=== PATIENT | female | born 1980 | race Caucasian/White ===

== ENCOUNTER 2016-12-17 10:17 | Emergency (ER) | payer OTHER ==
[2016-12-17 10:21] VITALS: BP 128/82; PULSE 87; TEMP 97; O2SAT 99
[2016-12-17 10:22] VITALS: BMI 54.9
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
[2016-12-17] MEDS: TDAP Vaccine 0.5 mL Syr IM ONE (11:39)
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
[2016-12-17] MEDS ORDERED: Miconazole 2% Vaginal 7 CREAM VAG SCH (22:00)
== END 2016-12-17 12:52 | disposition home or self-care (01) ==
LOC: MERGE 10:17 → H.ER 10:17
DX: S09.90XA Unspecified injury of head, initial encounter (principal); T14.8 Other injury of unspecified body region; Y04.0XXA Assault by unarmed brawl or fight, initial encounter; Y04.1XXA Assault by human bite, initial encounter; Y92.89 Other specified places as the place of occurrence of the external cause; Z79.01 Long term (current) use of anticoagulants; Z86.711 Personal history of pulmonary embolism

== ENCOUNTER 2017-02-11 19:12 | Emergency (ER) | payer OTHER ==
[2017-02-11 19:12] VITALS: BMI 54.9
[2017-02-11] MEDS ORDERED: DiphenhydrAMINE 50 mg/ml Inj IVP STA (20:07)
[2017-02-11] MEDS ORDERED: Sodium Chloride 0.9% 1,000 ML IV STA (20:16)
[2017-02-11 20:36] LABS: BASO % 0.5 % (0.0-2.0); EOS # 0.1 K/uL (0.0-0.7); EOS % 1.5 % (0.0-4.0); HEMATOCRIT 38.4 % (34.0-47.0); LYMPH # 3.3 K/uL (1.0-4.3); LYMPH % 35.1 % (20.0-40.0); MEAN CELL VOLUME 71.2 fl (81.0-99.0); MEAN CORPUSCULAR HEMOGLOBIN 23.7 pg (27.0-31.0); MEAN CORPUSCULAR HGB CONC 33.3 g/dL (33.0-37.0); MEAN PLATELET VOLUME 8.7 fl (7.2-11.7); MONO # 0.8 K/uL (0.0-0.8); MONO % 8.4 % (0.0-10.0); NEUT # 5.1 K/uL (1.8-7.0); NEUT % 54.5 % (50.0-75.0); NRBC % 0.1 % (0.0-0.0); RED CELL DISTRIBUTION WIDTH 16.5 % (11.5-14.5); WHITE BLOOD COUNT 9.3 K/uL (4.8-10.8)
--- NOTE | 2017-02-11 20:36 | ED PDOC ---
HPI: Chest Pain Time Seen by Provider: 02/11/17 19:49 Chief Complaint (Nursing): Chest Pain Chief Complaint (Provider): Chest pain History Per: Patient History/Exam Limitations: no limitations Onset/Duration Of Symptoms: Days Current Symptoms Are (Timing): Still Present Additional History Per: Patient Additional Complaint(s): The patient is a 36yo female with past medical history of multiple DVT's and PE' s, IVC filter, currently on coumadin, presents to the ED for evaluation of chest pain and shortness of breath, present for the past two weeks and worsening since onset. She reports the pain is left sided and radiating to her left shoulder. She reports the shortness of breath is constant but worse upon exertion. She reports bilateral lower extremity swelling which is chronic and states no changes today. Of note, patient does report she missed couple doses of her medication the past few weeks. Denies any cough or fevers. She offers no additional medical complaints. PCP: [facility] Past Medical History Reviewed: Historical Data, Nursing Documentation, Vital Signs Vital Signs: Last Vital Signs Temp 97.7 F 02/11/17 23:56 Pulse 63 02/11/17 23:56 Resp 20 02/11/17 23:56 BP 107/58 L 02/11/17 23:56 Pulse Ox 98 02/11/17 23:56 - Medical History PMH: Anemia, Anxiety, Asthma, Depression, Deep Vein Thrombosis (russ leg), HTN ( per old chart but pt denies), Migraine, Peripheral Edema (russ lung), Pneumonia, Pulmonary Embolism Denies: Chronic Kidney Disease Other PMH: Coag protein C and protein S deficiency - Surgical History Surgical History: Appendectomy, Endoscopy - Family History Family History: States: Diabetes, Hypertension - Social History Current smoker - smoking cessation education provided: No Alcohol: None Drugs: Denies - Immunization History Hx Tetanus Toxoid Vaccination: No Hx Influenza Vaccination: No Hx Pneumococcal Vaccination: No - Home Medications Home Medications: Ambulatory Orders Medication Instructions Recorded Warfarin [Coumadin] 8 mg PO DAILY 05/23/15 Fluconazole [Diflucan] 150 mg PO ONCE #1 tab 09/03/16 Hydrocortisone 1% Cream [Cortizone 1 appl TP BID #1 tube 09/03/16 1% Cream] Spironolactone [Aldactone] 100 mg PO BID 09/03/16 Amoxicillin/Potassium Clav 1 tab PO TID #30 tab 12/17/16 [Augmentin 500 mg-125 mg] Miconazole Nitrate [Monistat 3] 1 each VG DAILY #1 kit 12/17/16 Naproxen [Naprosyn] 500 mg PO Q12H #20 tab 12/17/16 - Allergies Allergies/Adverse Reactions: Allergies Allergy/AdvReac Type Severity Reaction Status Date / Time avocado Allergy Severe RASH Verified 04/15/16 13:03 banana Allergy Severe ANAPHYLAXIS Verified 04/15/16 13:03 Iodinated Contrast- Oral and Allergy Severe RASH Verified 04/15/16 13:03 IV Dye [Iodinated Contrast Media - IV Dye] kiwi Allergy Severe RASH Verified 04/15/16 13:03 peanut Allergy Severe RASH Verified 04/15/16 13:03 shrimp Allergy Severe RASH Verified 04/15/16 13:03 wheat Allergy Severe RASH Verified 04/15/16 13:03 Iodine and Iodide Containing Allergy RASH Verified 12/17/16 10:44 Produc Review of Systems ROS Statement: Except As Marked, All Systems Reviewed And Found Negative (as per HPI) Constitutional: Negative for: Fever Cardiovascular: Positive for: Chest Pain Respiratory: Positive for: Shortness of Breath, SOB with Exertion. Negative for : Cough - Laboratory Results Result Diagrams: 02/11/17 20:20 02/11/17 20:29 - ECG O2 Sat by Pulse Oximetry: 100 (RA) Pulse Ox Interpretation: Normal Medical Decision Making Medical Decision Making: Impression: Chest pain, shortness of breath Differential: PE, ACS, CHF, bronchospasm, Pneumonia Plan: -- labs -- CXR -- CT Angio -- Benadryl 50mg IVP -- Solumedrol 125mg IVP -- IV Fluids EXAM: CT Angiography Chest With Intravenous Contrast CLINICAL HISTORY: 36 years old, female; Pain and signs and symptoms; Shortness of breath; Chest pain; Left-sided chest pain; Patient HX: HX of p. E. ; Additional info: SOB h/o pe TECHNIQUE: Axial computed tomographic angiography images of the chest with intravenous contrast using pulmonary embolism protocol. All CT scans at this facility use one or more dose reduction techniques, viz.: automated exposure control; ma/kV adjustment per patient size (including targeted exams where dose is matched to indication; i.e. head); or iterative reconstruction technique. MIP reconstructed images were created and reviewed. Coronal and sagittal reformatted images were created and reviewed. CONTRAST: 95 mL of [id number] administered intravenously. COMPARISON: No relevant prior studies available. FINDINGS: Pulmonary arteries: Unremarkable. No pulmonary embolism. Aorta: No acute findings. No thoracic aortic aneurysm. Lungs: Unremarkable. No mass. No consolidation. Pleural space: Unremarkable. No significant effusion. No pneumothorax. Heart: Unremarkable. No cardiomegaly. No significant pericardial effusion. No evidence of RV dysfunction. Bones/joints: No acute fracture. No dislocation. Soft tissues: Unremarkable. Lymph nodes: Unremarkable. No enlarged lymph nodes. IMPRESSION: Unremarkable chest CTA. No pulmonary embolism. Thank you for allowing us to participate in the care of your patient. Dictated and Authenticated by: Maliha Braun MD Labs and imaging reviewed and discussed with patient. She is stable for discharge. All questions answered, follow up instructions given. She is comfortable going home and following up in the outpatient setting. Scribe Attestation: Documented by Natasha Suarez, acting as a scribe for Griselda Fields MD. Provider Scribe Attestation: All medical record entries made by the Scribe were at my direction and personally dictated by me. I have reviewed the chart and agree that the record accurately reflects my personal performance of the history, physical exam, medical decision making, and the department course for this patient. I have also personally directed, reviewed, and agree with the discharge instructions and disposition. Disposition - Clinical Impression Clinical Impression: Atypical chest pain - Patient ED Disposition Is Patient to be Admitted: No Doctor Will See Patient In The: Office Counseled Patient/Family Regarding: Studies Performed, Diagnosis, Need For Followup - Disposition Referrals: [facility] [Outside] Disposition: Routine/Home Disposition Time: 23:30 Condition: GOOD Additional Instructions: RETURN TO ER FOR WORSENING SYMPTOMS TAKE YOUR COUMADIN PRESCRIBED AND FOLLOW UP SCHEDULED WITH CLINIC Instructions: Chest Pain (ED), Stress (ED)
[2017-02-11 20:40] LABS: PARTIAL THROMBOPLASTIN TIME 32.2 Seconds (25.6-37.1)
[2017-02-11 20:50] LABS: ALB/GLOB RATIO 1.3 (1.0-2.1); ALKALINE PHOSPHATASE 65 U/L (38-126); ALT/SGPT 31 U/L (9-52); AST/SGOT 24 U/L (14-36); BILIRUBIN,TOTAL 0.6 mg/dl (0.2-1.3); BLOOD UREA NITROGEN 10 mg/dl (7-17); CALCIUM 9.1 mg/dL (8.4-10.2); CARBON DIOXIDE 25 mmol/L (22-30); CHLORIDE 106 mmol/L (98-107); GFR AFRICAN-AMERICAN > 60; GLUCOSE,RANDOM 83 mg/dL (65-105); POTASSIUM 3.6 MMOL/L (3.6-5.0); SODIUM 144 mmol/l (132-148); TOTAL PROTEIN 7.4 G/DL (6.3-8.2)
[2017-02-11 21:26] LABS: THYROID STIMULATING HORMONE 1.91 mIU/ML (0.46-4.68)
[2017-02-11] MEDS ORDERED: DiphenhydrAMINE 50 mg/ml Inj ONE (21:35)
[2017-02-11] MEDS ORDERED: Iodixanol 320 MG/ML 100 ML BOTTLE IV ONE (22:41)
[2017-02-11] MEDS ORDERED: Sodium Chloride 0.9% 50 ML IV ONE (22:41)
[2017-02-11 23:57] VITALS: BP 107/58; PULSE 63; RESP 20; TEMP 97.7
[2017-02-11 23:58] VITALS: O2SAT 100
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
--- NOTE | 2017-02-12 09:54 | RAD ---
HISTORY: sob COMPARISON: No prior. TECHNIQUE: Chest PA and lateral FINDINGS: LUNGS: No acute infiltrate bilaterally however history volume appears somewhat diminished. PLEURA: No significant pleural effusion identified. No pneumothorax apparent. CARDIOVASCULAR: Cardiac silhouette appears upper limits of normal. OSSEOUS STRUCTURES: No significant abnormalities. VISUALIZED UPPER ABDOMEN: Normal. OTHER FINDINGS: None. IMPRESSION: Diminished inspiratory volume. Upper limits normal cardiac size. No acute infiltrate pleural effusion or pneumothorax identified bilaterally.
--- NOTE | 2017-02-13 11:12 | CARD ---
APPROVED REPORT EKG Measurement Heart [id number] <Conclusion> Normal sinus rhythm Possible Left atrial enlargement Borderline ECG
== END 2017-02-12 00:04 | disposition home or self-care (01) ==
LOC: H.ER 19:12
DX: R07.9 Chest pain, unspecified (principal); Z86.59 Personal history of other mental and behavioral disorders; I10 Essential (primary) hypertension; J45.909 Unspecified asthma, uncomplicated; Z86.711 Personal history of pulmonary embolism; Z86.718 Personal history of other venous thrombosis and embolism; Z79.01 Long term (current) use of anticoagulants
CPT/HCPCS: 71020; 71275; 80053; 80324; 80345; 80346; 80349; 80353; 80358; 80361; 81025; 83880; 83992; 84443; 84484; 85025; 85610; 85730; 86850; 86900; 93005; 96361; 96374; 96375; 99284; J1200; J2930; J7040; Q9967

== ENCOUNTER 2017-03-28 15:01 | Emergency (ER) | payer OTHER ==
[2017-03-28 15:02] VITALS: BMI 50.1
[2017-03-28 15:10] VITALS: BP 115/73; PULSE 87; RESP 18; TEMP 98.3; O2SAT 99
[2017-03-28] MEDS ORDERED: Sodium Chloride 0.9% 1,000 ML IV STA (15:37)
--- NOTE | 2017-03-28 15:38 | ED PDOC ---
HPI: Abdomen Time Seen by Provider: 03/28/17 15:18 Chief Complaint (Nursing): Abdominal Pain Chief Complaint (Provider): Abd pain History Per: Patient History/Exam Limitations: no limitations Onset/Duration Of Symptoms: Days (yesterday) Outside of [place] travel?: No Additional Complaint(s): Abd pain across lower and r flank. Nausea, no vomit. Headache mild frontal, not worst in her life. No neck pain, weakness, dizziness, vision changes. Gradual onset of pain. No chest pain, dyspnea, leg pain. No fever, cough. On coumadin for pe dx 4 yrs ago. No numbness, tingles. Past Medical History Reviewed: Nursing Documentation, Vital Signs Vital Signs: Last Vital Signs Temp 98.3 F 03/28/17 15:08 Pulse 87 03/28/17 15:08 Resp 18 03/28/17 15:08 BP 115/73 03/28/17 15:08 Pulse Ox 99 03/28/17 15:41 - Medical History PMH: Anemia, Anxiety, Asthma, Depression, Deep Vein Thrombosis (russ leg), Migraine, Peripheral Edema (russ lung), Pneumonia, Pulmonary Embolism Denies: Chronic Kidney Disease - Surgical History Surgical History: Appendectomy, Endoscopy - Family History Family History: States: Unknown Family Hx, Diabetes, Hypertension - Social History Current smoker - smoking cessation education provided: No Alcohol: None Drugs: Denies - Immunization History Hx Tetanus Toxoid Vaccination: No Hx Influenza Vaccination: No Hx Pneumococcal Vaccination: No - Home Medications Home Medications: Ambulatory Orders Medication Instructions Recorded Warfarin [Coumadin] 8 mg PO DAILY 05/23/15 Fluconazole [Diflucan] 150 mg PO ONCE #1 tab 09/03/16 Hydrocortisone 1% Cream [Cortizone 1 appl TP BID #1 tube 09/03/16 1% Cream] Spironolactone [Aldactone] 100 mg PO BID 09/03/16 Amoxicillin/Potassium Clav 1 tab PO TID #30 tab 12/17/16 [Augmentin 500 mg-125 mg] Miconazole Nitrate [Monistat 3] 1 each VG DAILY #1 kit 12/17/16 Naproxen [Naprosyn] 500 mg PO Q12H #20 tab 12/17/16 - Allergies Allergies/Adverse Reactions: Allergies Allergy/AdvReac Type Severity Reaction Status Date / Time avocado Allergy Severe RASH Verified 03/28/17 15:07 banana Allergy Severe ANAPHYLAXIS Verified 03/28/17 15:07 Iodinated Contrast- Oral and Allergy Severe RASH Verified 03/28/17 15:07 IV Dye [Iodinated Contrast Media - IV Dye] kiwi Allergy Severe RASH Verified 03/28/17 15:07 peanut Allergy Severe RASH Verified 03/28/17 15:07 shrimp Allergy Severe RASH Verified 03/28/17 15:07 wheat Allergy Severe RASH Verified 03/28/17 15:07 Iodine and Iodide Containing Allergy RASH Verified 03/28/17 15:07 Produc Review of Systems ROS Statement: Except As Marked, All Systems Reviewed And Found Negative Gastrointestinal: Positive for: Nausea, Abdominal Pain Musculoskeletal: Positive for: Back Pain Physical Exam - Reviewed Nursing Documentation Reviewed: Yes Vital Signs Reviewed: Yes - Physical Exam Appears: Positive for: Non-toxic, No Acute Distress Head Exam: Positive for: ATRAUMATIC, NORMAL INSPECTION, NORMOCEPHALIC Skin: Positive for: Normal Color, Warm, DRY Eye Exam: Positive for: EOMI, Normal appearance, PERRL ENT: Positive for: Normal ENT Inspection Neck: Positive for: Normal, Painless ROM Cardiovascular/Chest: Positive for: Regular Rate, Rhythm Respiratory: Positive for: CNT, Normal Breath Sounds Gastrointestinal/Abdominal: Positive for: Bowel Sounds, Soft, Tenderness ( across lower). Negative for: Distended, Guarding Back: Positive for: R CVA Tenderness. Negative for: L CVA Tenderness Extremity: Positive for: Normal ROM. Negative for: Tenderness, Pedal Edema Neurologic/Psych: Positive for: Alert, topstitcher zigzag II-XII, Oriented. Negative for: Motor/Sensory Deficits, Aphasia, Facial Droop - Laboratory Results Result Diagrams: 03/28/17 16:24 03/28/17 16:24 Interpretation Of Abn Labs: no acute - ECG O2 Sat by Pulse Oximetry: 99 Pulse Ox Interpretation: Normal - Progress ED Course And Treament: 1838: Dr. Newton to take over care. Fu on us. Dispo accordingly. Disposition - Clinical Impression Clinical Impression: Abdominal pain - Patient ED Disposition Is Patient to be Admitted: Transfer of Care - Disposition Disposition: Transfer of Care Disposition Time: 18:39 Condition: STABLE Patient Signed Over To: Zak Newton
[2017-03-28 16:29] LABS: BASO # 0.1 K/uL (0.0-0.2); BASO % 1.4 % (0.0-2.0); EOS # 0.2 K/uL (0.0-0.7); EOS % 2.5 % (0.0-4.0); HEMATOCRIT 37.3 % (34.0-47.0); LYMPH # 3.8 K/uL (1.0-4.3); LYMPH % 40.1 % (20.0-40.0); MEAN CELL VOLUME 70.1 fl (81.0-99.0); MEAN CORPUSCULAR HEMOGLOBIN 23.7 pg (27.0-31.0); MEAN CORPUSCULAR HGB CONC 33.8 g/dL (33.0-37.0); MEAN PLATELET VOLUME 8.9 fl (7.2-11.7); MONO # 0.7 K/uL (0.0-0.8); MONO % 7.3 % (0.0-10.0); NEUT # 4.6 K/uL (1.8-7.0); NEUT % 48.7 % (50.0-75.0); NRBC % 0.2 % (0.0-0.0); RED CELL DISTRIBUTION WIDTH 16.5 % (11.5-14.5); WHITE BLOOD COUNT 9.4 K/uL (4.8-10.8)
[2017-03-28 16:41] LABS: ALB/GLOB RATIO 1.1 (1.0-2.1); ALKALINE PHOSPHATASE 58 U/L (38-126); ALT/SGPT 27 U/L (9-52); AST/SGOT 27 U/L (14-36); BILIRUBIN,TOTAL 0.4 mg/dl (0.2-1.3); BLOOD UREA NITROGEN 15 mg/dl (7-17); CALCIUM 8.2 mg/dL (8.4-10.2); CARBON DIOXIDE 27 mmol/L (22-30); CHLORIDE 106 mmol/L (98-107); GFR AFRICAN-AMERICAN > 60; GLUCOSE,RANDOM 75 mg/dL (65-105); LIPASE 62 U/L (23-300); POTASSIUM 4.2 MMOL/L (3.6-5.0); SODIUM 143 mmol/l (132-148); TOTAL PROTEIN 7.4 G/DL (6.3-8.2)
--- NOTE | 2017-03-28 17:06 | CT ---
PROCEDURE: CT Abdomen and Pelvis without Oral or IV contrast. HISTORY: R/O stone COMPARISON: None available. TECHNIQUE: Contiguous axial images of the abdomen and pelvis. No oral or IV contrast administered. Coronal and Sagittal reformats generated and reviewed. Radiation dose: Total exam DLP = 1169.10 mGy-cm. This CT exam was performed using one or more of the following dose reduction techniques: Automated exposure control, adjustment of the mA and/or kV according to patient size, and/or use of iterative reconstruction technique. FINDINGS: There is limited evaluation of the solid organs without the administration of IV contrast. LOWER THORAX: No visible consolidation, pleural effusion, or pneumothorax. LIVER: Unremarkable unenhanced appearance. GALLBLADDER AND BILE DUCTS: Unremarkable unenhanced appearance. PANCREAS: Unremarkable unenhanced appearance. SPLEEN: Unremarkable unenhanced appearance. ADRENALS: Unremarkable unenhanced appearance. KIDNEYS AND URETERS: No hydronephrosis or obstructing renal calculus. BLADDER: Under distended urinary bladder appears otherwise unremarkable. REPRODUCTIVE: Uterus is present. Prominent right adnexa possibly related to ovarian cyst; suggest pelvic ultrasound for further evaluation. APPENDIX: The appendix is not identified, likely resected ; correlate with surgical history. No secondary signs of acute appendicitis. BOWEL: The stomach is nondistended. Lack of oral contrast limits evaluation for bowel pathology. The bowel loops appear within normal limits of caliber without evidence of intestinal obstruction. Diverticulosis without CT evidence of acute diverticulitis. Moderate constipation. PERITONEUM: No significant free fluid. No definite free air. LYMPH NODES: Sub cm prominent mesenteric and retroperitoneal lymph nodes, nonspecific. No bulky lymphadenopathy identified. VASCULATURE: IVC filter. No aortic aneurysm. BONES: No acute osseous abnormality is detected. OTHER FINDINGS: None. IMPRESSION: Prominent right adnexa may be related to ovarian cyst; suggest pelvic ultrasound for further evaluation. No hydronephrosis or obstructing calculus identified. Diverticulosis without CT evidence of acute diverticulitis. Moderate constipation. IVC filter. Additional incidental findings as above.
[2017-03-28 17:19] LABS: PARTIAL THROMBOPLASTIN TIME 33.2 Seconds (25.6-37.1)
--- NOTE | 2017-03-28 19:14 | ED PDOC ---
- Laboratory Results Result Diagrams: 03/28/17 16:24 03/28/17 16:24 - ECG O2 Sat by Pulse Oximetry: 99 Medical Decision Making Medical Decision Makin:00 Patient signed out to me by Dr. Dela Cruz pending follow up on US. If negative, patient is stable for discharge home. 20:15 FINDINGS: Uterus/cervix: Uterus measures 8.9 x 4.1 x 5.4 cm in size. No myometrial mass. Endometrium: 0.6 cm in thickness. Right ovary: 4.9 x 4.4 x 5.0 cm in size. 3.9 x 3.1 x 3.5 cm hypoechoic lesion with internal echoes. Normal flow. Left ovary: 3.1 x 1.8 x 2.8 cm in size. No mass. Normal flow. Free fluid: Trace free fluid within pelvis. Bladder: Unremarkable as visualized. IMPRESSION: 1. Probable hemorrhagic RIGHT ovarian cyst. Recommend sonographic followup in 6 weeks to ensure resolution and exclude other etiologies 20:31 US shows right ovarian cyst. Patient advised to follow up with [facility] and is stable for discharge home. pt aware of findgins and need for outpt folow up Clinical Impression: Ovarian Cyst Scribe Attestation: Documented by Robyn Tate, acting as a scribe for Zak Newton MD. Provider Scribe Attestation: All medical record entries made by the Scribe were at my direction and personally dictated by me. I have reviewed the chart and agree that the record accurately reflects my personal performance of the history, physical exam, medical decision making, and the department course for this patient. I have also personally directed, reviewed, and agree with the discharge instructions and disposition. Disposition Counseled Patient/Family Regarding: Studies Performed, Diagnosis, Need For Followup - Clinical Impression Clinical Impression: Abdominal pain, Ovarian cyst - POA Present On Arrival: None - Disposition Referrals: [facility] [Outside] [facility] [Outside] Disposition: Routine/Home Disposition Time: 20:15 Condition: IMPROVED Additional Instructions: follow up with your primary doctor/obgyn in 1-2 days return to the ED with any worsening or concerning symptoms. Instructions: Ovarian Cyst (ED), Abdominal Pain (ED) Forms: [employer] (Korean)
--- NOTE | 2017-03-28 19:51 | US ---
EXAM: US Pelvis Complete, Transabdominal CLINICAL HISTORY: 36 years old, female; Pain; Pelvic pain TECHNIQUE: Real-time transabdominal pelvic ultrasound (complete) with image documentation. COMPARISON: No relevant prior studies available. FINDINGS: Uterus/cervix: Uterus measures 8.9 x 4.1 x 5.4 cm in size. No myometrial mass. Endometrium: 0.6 cm in thickness. Right ovary: 4.9 x 4.4 x 5.0 cm in size. 3.9 x 3.1 x 3.5 cm hypoechoic lesion with internal echoes. Normal flow. Left ovary: 3.1 x 1.8 x 2.8 cm in size. No mass. Normal flow. Free fluid: Trace free fluid within pelvis. Bladder: Unremarkable as visualized. IMPRESSION: 1. Probable hemorrhagic RIGHT ovarian cyst. Recommend sonographic followup in 6 weeks to ensure resolution and exclude other etiologies. EXAM: US Pelvis, Transvaginal CLINICAL HISTORY: 36 years old, female; Pain; Pelvic pain TECHNIQUE: Real-time transvaginal pelvic ultrasound (complete) with image documentation. Transvaginal imaging was used for better evaluation of the endometrium and adnexa. COMPARISON: No relevant prior studies available. FINDINGS: Uterus/cervix: Uterus measures 8.9 x 4.1 x 5.4 cm in size. No myometrial mass. Endometrium: 0.6 cm in thickness. Right ovary: 4.9 x 4.4 x 5.0 cm in size. 3.9 x 3.1 x 3.5 cm hypoechoic lesion with internal echoes. Normal flow. Left ovary: 3.1 x 1.8 x 2.8 cm in size. No mass. Normal flow. Free fluid: Trace free fluid within pelvis. Bladder: Empty bladder which cannot be evaluated with this probe.
== END 2017-03-28 21:21 | disposition home or self-care (01) ==
LOC: H.ER 15:01
DX: N83.201 Unspecified ovarian cyst, right side (principal); F32.9 Major depressive disorder, single episode, unspecified; F41.9 Anxiety disorder, unspecified; J45.909 Unspecified asthma, uncomplicated; Z86.711 Personal history of pulmonary embolism; Z86.718 Personal history of other venous thrombosis and embolism; K59.00 Constipation, unspecified
CPT/HCPCS: 74176; 76830; 76856; 80053; 81025; 83690; 85025; 85610; 85730; 96374; 99283; J2765; J7040

== ENCOUNTER 2017-06-23 16:12 | Emergency (ER) | payer OTHER ==
[2017-06-23 16:12] VITALS: BMI 50.1
[2017-06-23] MEDS ORDERED: DiphenhydrAMINE 50 mg/ml Inj IVP STA (16:31)
[2017-06-23 17:02] LABS: BASO # 0.1 K/uL (0.0-0.2); BASO % 1.1 % (0.0-2.0); EOS # 0.2 K/uL (0.0-0.7); EOS % 3.4 % (0.0-4.0); HEMOGLOBIN 13.1 g/dL (12.0-16.0); LYMPH % 39.2 % (20.0-40.0); MEAN CELL VOLUME 69.4 fl (81.0-99.0); MEAN CORPUSCULAR HEMOGLOBIN 23.1 pg (27.0-31.0); MEAN CORPUSCULAR HGB CONC 33.3 g/dL (33.0-37.0); MEAN PLATELET VOLUME 8.5 fl (7.2-11.7); MONO % 18.4 % (0.0-10.0); NEUT % 37.9 % (50.0-75.0); NRBC % 0.6 % (0.0-0.0); RBC 5.65 Mil/uL (3.80-5.20); RED CELL DISTRIBUTION WIDTH 16.4 % (11.5-14.5); WHITE BLOOD COUNT 5.2 K/uL (4.8-10.8)
--- NOTE | 2017-06-23 17:08 | RAD ---
HISTORY: cough COMPARISON: Chest radiograph dated 02/11/2017. TECHNIQUE: Chest PA and lateral FINDINGS: LUNGS: No active pulmonary disease. PLEURA: No significant pleural effusion identified. No pneumothorax apparent. CARDIOVASCULAR: Normal. OSSEOUS STRUCTURES: No significant abnormalities. VISUALIZED UPPER ABDOMEN: Normal. OTHER FINDINGS: None. IMPRESSION: No active disease.
[2017-06-23 17:11] LABS: ALB/GLOB RATIO 1.1 (1.0-2.1); ALBUMIN 3.8 g/dL (3.5-5.0); ALT/SGPT 31 U/L (9-52); AST/SGOT 26 U/L (14-36); BLOOD UREA NITROGEN 14 mg/dl (7-17); CALCIUM 8.6 mg/dL (8.4-10.2); GFR AFRICAN-AMERICAN > 60; GFR NON-AFRICAN AMERICAN > 60
--- NOTE | 2017-06-23 17:15 | ED PDOC ---
HPI: CCC, URI, Sore Throat Time Seen by Provider: 06/23/17 16:24 Chief Complaint (Nursing): Flu-like Symptoms Chief Complaint (Provider): Cough, Sore Throat, Shortness of Breath, Body Aches and and "Lung Pain" History Per: Patient History/Exam Limitations: no limitations Onset/Duration Of Symptoms: Days (x2) Current Symptoms Are (Timing): Still Present Location Of Pain: None Sick Contacts (Context): None Ear Symptoms: Bilateral: None Additional Complaint(s): 37 year old female presents to the ED complaining of cough, sore throat, body aches, shortness of breath and "lung pain" x2 days. The patient states that she has taken no medications at home for her symptoms. Patient does reports that she is currently taking coumadin at him as she has a past medical history of 3 pulmonary embolisms. Denies chest pain, hemoptysis, leg pain. PMD: Non [facility] Provider, Past Medical History Reviewed: Historical Data, Nursing Documentation, Vital Signs Vital Signs: Last Vital Signs Temp 99.1 F 06/23/17 16:17 Pulse 77 06/23/17 16:17 Resp 20 06/23/17 16:17 BP 116/63 06/23/17 16:17 Pulse Ox 100 06/23/17 17:18 - Medical History PMH: Anemia, Anxiety, Asthma, Depression, Deep Vein Thrombosis (russ leg), HTN ( per old chart but pt denies), Migraine, Peripheral Edema (russ lung), Pneumonia, Pulmonary Embolism Denies: Chronic Kidney Disease - Surgical History Surgical History: Appendectomy, Endoscopy - Family History Family History: States: Unknown Family Hx, Diabetes, Hypertension - Immunization History Hx Tetanus Toxoid Vaccination: No Hx Influenza Vaccination: No Hx Pneumococcal Vaccination: No - Home Medications Home Medications: Ambulatory Orders Medication Instructions Recorded Warfarin [Coumadin] 8 mg PO DAILY 05/23/15 Fluconazole [Diflucan] 150 mg PO ONCE #1 tab 09/03/16 Hydrocortisone 1% Cream [Cortizone 1 appl TP BID #1 tube 09/03/16 1% Cream] Spironolactone [Aldactone] 100 mg PO BID 09/03/16 Amoxicillin/Potassium Clav 1 tab PO TID #30 tab 12/17/16 [Augmentin 500 mg-125 mg] Miconazole Nitrate [Monistat 3] 1 each VG DAILY #1 kit 12/17/16 Naproxen [Naprosyn] 500 mg PO Q12H #20 tab 12/17/16 Benzonatate [Tessalon Perle] 100 mg PO Q8 PRN #30 capsule 06/23/17 Oseltamivir Phosphate [Tamiflu] 75 mg PO BID #9 capsule 06/23/17 - Allergies Allergies/Adverse Reactions: Allergies Allergy/AdvReac Type Severity Reaction Status Date / Time avocado Allergy Severe RASH Verified 03/28/17 15:07 banana Allergy Severe ANAPHYLAXIS Verified 03/28/17 15:07 Iodinated Contrast- Oral and Allergy Severe RASH Verified 03/28/17 15:07 IV Dye [Iodinated Contrast Media - IV Dye] kiwi Allergy Severe RASH Verified 03/28/17 15:07 peanut Allergy Severe RASH Verified 03/28/17 15:07 shrimp Allergy Severe RASH Verified 03/28/17 15:07 wheat Allergy Severe RASH Verified 03/28/17 15:07 Iodine and Iodide Containing Allergy RASH Verified 03/28/17 15:07 Produc Review of Systems ENT: Positive for: Throat Pain Cardiovascular: Negative for: Chest Pain Respiratory: Positive for: Cough, Shortness of Breath. Negative for: Hemoptysis Musculoskeletal: Negative for: Leg Pain Physical Exam - Reviewed Nursing Documentation Reviewed: Yes Vital Signs Reviewed: Yes - Physical Exam Appears: Positive for: Non-toxic, No Acute Distress Head Exam: Positive for: NORMAL INSPECTION Skin: Positive for: Normal Color, Warm, Dry. Negative for: Rash Eye Exam: Positive for: Normal appearance, EOMI, PERRL ENT: Positive for: Normal ENT Inspection. Negative for: Nasal Congestion, Tonsillar Exudate Neck: Positive for: Normal, Painless ROM, Supple Cardiovascular/Chest: Positive for: Regular Rate, Rhythm, Chest Non Tender. Negative for: Tachycardia Respiratory: Positive for: Normal Breath Sounds. Negative for: Wheezing, Respiratory Distress Gastrointestinal/Abdominal: Positive for: Normal Exam, Bowel Sounds, Soft. Negative for: Tenderness, Guarding, Rebound Back: Positive for: Normal Inspection. Negative for: L CVA Tenderness, R CVA Tenderness Extremity: Positive for: Normal ROM. Negative for: Tenderness, Calf Tenderness , Deformity, Swelling Neurologic/Psych: Positive for: Alert, Oriented, Gait - Laboratory Results Result Diagrams: 06/23/17 16:55 06/23/17 16:55 - ECG O2 Sat by Pulse Oximetry: 100 (RA) Pulse Ox Interpretation: Normal - Radiology X-Ray: Interpreted by Me (CXR) X-Ray Interpretation: No Acute Disease - Progress ED Course And Treament: CTA chest w/o contrast: no PE Medical Decision Making Medical Decision Makin Initial Impression 37 y/o female presenting with cough, sore throat, body aches and shortness of breath Initial Plan: * CT Angio Chest PE Protocol * EKG * CMP * Upreg * CBC * PTT * PT/INR * CXR (PA&LAT) * Benadryl 50mg IVP * Tylenol 975mg PO * Reevaluation Documented by Alize Fabian acting as a scribe for Renny Cortez PA-C. All medical record entries made by the Scribe were at my direction and personally dictated by me. I have reviewed the chart and agree that the record accurately reflects my personal performance of the history, physical exam, medical decision making, and the department course for this patient. I have also personally directed, reviewed, and agree with the discharge instructions and disposition. Disposition - Clinical Impression Clinical Impression: Influenza - Patient ED Disposition Is Patient to be Admitted: No - Disposition Disposition: Routine/Home Disposition Time: 20:20 Condition: STABLE Prescriptions: Benzonatate [Tessalon Perle] 100 mg PO Q8 PRN #30 capsule PRN Reason: Cough Oseltamivir Phosphate [Tamiflu] 75 mg PO BID #9 capsule Instructions: Influenza (ED) Forms: [email or web address] (Armenian) Print Language: JAPANESE
[2017-06-23 17:29] LABS: INR 2.3 (0.9-1.2); PROTHROMBIN TIME 26.4 Seconds (9.8-13.1)
[2017-06-23 17:30] LABS: PARTIAL THROMBOPLASTIN TIME 40.2 Seconds (25.6-37.1)
[2017-06-23] MEDS ORDERED: DiphenhydrAMINE 50 mg/ml Inj ONE (17:33)
[2017-06-23] MEDS ORDERED: Iodixanol 320 MG/ML 100 ML BOTTLE IV ONE (18:29)
--- NOTE | 2017-06-23 19:57 | CT ---
EXAM: CT Angiography Chest With Intravenous Contrast CLINICAL HISTORY: 37 years old, female; Pain and signs and symptoms; Other: Chest pain; Other: Coughing sorethroat; Patient HX: Pe multiple times dvt obese; Additional info: B/l chest pain TECHNIQUE: Axial computed tomographic angiography images of the chest with intravenous contrast using pulmonary embolism protocol. All CT scans at this facility use one or more dose reduction techniques, viz.: automated exposure control; ma/kV adjustment per patient size (including targeted exams where dose is matched to indication; i.e. head); or iterative reconstruction technique. MIP reconstructed images were created and reviewed. Coronal and sagittal reformatted images were created and reviewed. CONTRAST: 98 mL of VISIPAQUE administered intravenously. COMPARISON: CT - ANGIO CHEST PE PROTOCOL 2017-02-11 22:47 FINDINGS: Limitations: Motion artifact - mild. Streak artifact - mild. Suboptimal timing of bolus. Pulmonary arteries: No definite filling defects within main, lobar, segmental branches. Suboptimal evaluation of subsegmental branches. Aorta: No aneurysm. No dissection. Lungs: Minimal atelectasis. No consolidation. Pleural space: No significant effusion. No pneumothorax. Heart: Mild cardiomegaly. No significant pericardial effusion. Bones/joints: No acute fracture. Soft tissues: Unremarkable. Lymph nodes: No pathologically enlarged lymph nodes. Kidneys and ureters: Small calculus within RIGHT kidney. Stomach and bowel: Minimally distended loop of small bowel, likely ileus. Upper abdomen: Elevated RIGHT hemidiaphragm. IMPRESSION: 1. No definite pulmonary embolism. 2. Incidental/non-acute findings are described above.
[2017-06-23 20:29] VITALS: BP 129/81; PULSE 85; RESP 16; TEMP 98.9; O2SAT 98
--- NOTE | 2017-06-24 10:48 | CARD ---
APPROVED REPORT EKG Measurement Heart [id number] <Conclusion> Normal sinus rhythm Normal ECG
== END 2017-06-23 20:29 | disposition home or self-care (01) ==
LOC: H.ER 16:12
DX: J11.1 Influenza due to unidentified influenza virus with other respiratory manifestations (principal); I10 Essential (primary) hypertension; Z86.711 Personal history of pulmonary embolism; Z79.01 Long term (current) use of anticoagulants
CPT/HCPCS: 71046; 71275; 80053; 81025; 85025; 85610; 85730; 87040; 87804; 93005; 96374; 99284; J1200; Q9967

== ENCOUNTER 2017-07-11 12:18 | Emergency (ER) | payer OTHER ==
[2017-07-11 12:19] VITALS: BMI 50.1
[2017-07-11] MEDS ORDERED: Alum-Mag Hydrox-Simethicone Susp (30 mL) PO ONE (13:21)
[2017-07-11 13:24] LABS: BASO # 0.1 K/uL (0.0-0.2); EOS # 0.3 K/uL (0.0-0.7); EOS % 3.7 % (0.0-4.0); HEMOGLOBIN 12.6 g/dL (12.0-16.0); LYMPH # 2.9 K/uL (1.0-4.3); LYMPH % 41.6 % (20.0-40.0); MEAN CELL VOLUME 69.9 fl (81.0-99.0); MEAN CORPUSCULAR HEMOGLOBIN 23.8 pg (27.0-31.0); MEAN PLATELET VOLUME 8.2 fl (7.2-11.7); MONO # 0.3 K/uL (0.0-0.8); MONO % 4.3 % (0.0-10.0); NEUT # 3.4 K/uL (1.8-7.0); NEUT % 49.4 % (50.0-75.0); NRBC % 0.3 % (0.0-0.0); RBC 5.29 Mil/uL (3.80-5.20); RED CELL DISTRIBUTION WIDTH 17.1 % (11.5-14.5)
[2017-07-11 13:35] LABS: BLOOD UREA NITROGEN 12 mg/dl (7-17); CALCIUM 8.3 mg/dL (8.4-10.2); GFR AFRICAN-AMERICAN > 60; GFR NON-AFRICAN AMERICAN > 60; INR 2.4 (0.9-1.2); PROTHROMBIN TIME 27.2 Seconds (9.8-13.1)
--- NOTE | 2017-07-11 13:35 | ED PDOC ---
HPI: Chest Pain Time Seen by Provider: 07/11/17 12:33 Chief Complaint (Nursing): Chest Pain Chief Complaint (Provider): Chest Pain History Per: Patient History/Exam Limitations: no limitations Onset/Duration Of Symptoms: Days (x2 months), Intermittent Episodes Current Symptoms Are (Timing): Still Present Quality: Other (discomfort) Associated Symptoms: denies: Dyspnea Additional Complaint(s): Srinivas Shah is a 37 year old female, with a past medical history of DVT, PE, and IVC filter placement, who presents to the emergency department complaining of intermittent chest discomfort onset for x2 months. Patient states discomfort starts when she eats and lasts for several hours. She is able to tolerate fluids and solids but has a feeling that food is stuck every time she eats. She denies any actual vomiting or spitting food, she is able to keep it down. Patient reports she has had this sensation for x2 months now. She is currently taking Coumadin. She denies any weight loss, abdominal pain, diarrhea , shortness of breath. No further medical complaints. PMD: Darya Bonner Past Medical History Reviewed: Historical Data, Nursing Documentation, Vital Signs Vital Signs: Last Vital Signs Temp 97.0 F L 07/11/17 12:26 Pulse 85 07/11/17 14:36 Resp 16 07/11/17 12:26 BP 127/76 07/11/17 12:26 Pulse Ox 100 07/11/17 14:36 - Medical History PMH: Anemia, Anxiety, Asthma, Depression, Deep Vein Thrombosis (russ leg), HTN ( per old chart but pt denies), Migraine, Peripheral Edema (russ lung), Pneumonia, Pulmonary Embolism Denies: Chronic Kidney Disease - Surgical History Surgical History: Appendectomy, Endoscopy Other surgeries: IVC filter placement. - Family History Family History: States: Diabetes, Hypertension, Other Other Family History: Stomach CA - Immunization History Hx Tetanus Toxoid Vaccination: No Hx Influenza Vaccination: No Hx Pneumococcal Vaccination: No - Home Medications Home Medications: Ambulatory Orders Medication Instructions Recorded Warfarin [Coumadin] 8 mg PO DAILY 05/23/15 Fluconazole [Diflucan] 150 mg PO ONCE #1 tab 09/03/16 Hydrocortisone 1% Cream [Cortizone 1 appl TP BID #1 tube 09/03/16 1% Cream] Spironolactone [Aldactone] 100 mg PO BID 09/03/16 Amoxicillin/Potassium Clav 1 tab PO TID #30 tab 12/17/16 [Augmentin 500 mg-125 mg] Miconazole Nitrate [Monistat 3] 1 each VG DAILY #1 kit 12/17/16 Naproxen [Naprosyn] 500 mg PO Q12H #20 tab 12/17/16 Benzonatate [Tessalon Perle] 100 mg PO Q8 PRN #30 capsule 06/23/17 Oseltamivir Phosphate [Tamiflu] 75 mg PO BID #9 capsule 06/23/17 Esomeprazole Magnesium [Nexium] 20 mg PO DAILY #30 capsule. 07/11/17 Sucralfate [Carafate] 1 gm PO DAILY #30 dose 07/11/17 - Allergies Allergies/Adverse Reactions: Allergies Allergy/AdvReac Type Severity Reaction Status Date / Time avocado Allergy Severe RASH Verified 07/11/17 12:26 banana Allergy Severe ANAPHYLAXIS Verified 07/11/17 12:26 Iodinated Contrast- Oral and Allergy Severe RASH Verified 07/11/17 12:26 IV Dye [Iodinated Contrast Media - IV Dye] kiwi Allergy Severe RASH Verified 07/11/17 12:26 peanut Allergy Severe RASH Verified 07/11/17 12:26 shrimp Allergy Severe RASH Verified 07/11/17 12:26 wheat Allergy Severe RASH Verified 07/11/17 12:26 Iodine and Iodide Containing Allergy RASH Verified 07/11/17 12:26 Produc JUSTINO Risk Score for UA/NSTEMI - JUSTINO Risk Score Age > 64: NO 3 or more CAD Risk Factors: NO Known CAD (Stenosis greater than 50%): NO Aspirin use in past 7 days: NO Severe Angina: NO EKG ST changes greater than 0.5mm: NO Positive Cardiac Marker: NO JUSTINO Score: 0 Risk %: 5% Review of Systems ROS Statement: Except As Marked, All Systems Reviewed And Found Negative Constitutional: Negative for: Weight loss Cardiovascular: Positive for: Chest Pain (discomfort after eating. ) Respiratory: Negative for: Shortness of Breath Gastrointestinal: Negative for: Vomiting, Abdominal Pain, Diarrhea Physical Exam - Reviewed Nursing Documentation Reviewed: Yes Vital Signs Reviewed: Yes - Physical Exam Appears: Positive for: Non-toxic Head Exam: Positive for: ATRAUMATIC, NORMAL INSPECTION, NORMOCEPHALIC Skin: Positive for: Normal Color, Warm, Dry Eye Exam: Positive for: Normal appearance, EOMI, PERRL ENT: Positive for: Normal ENT Inspection Neck: Positive for: Painless ROM, Supple Cardiovascular/Chest: Positive for: Regular Rate, Rhythm. Negative for: Murmur Respiratory: Positive for: Normal Breath Sounds (clear b/l). Negative for: Respiratory Distress Gastrointestinal/Abdominal: Positive for: Normal Exam, Soft. Negative for: Tenderness, Guarding, Rebound Back: Positive for: Normal Inspection. Negative for: L CVA Tenderness, R CVA Tenderness, Vertebral Tenderness Extremity: Positive for: Normal ROM. Negative for: Tenderness, Pedal Edema, Calf Tenderness, Deformity, Swelling Neurologic/Psych: Positive for: Alert, Oriented (x3). Negative for: Motor/ Sensory Deficits - Laboratory Results Result Diagrams: 07/11/17 13:20 07/11/17 13:20 - ECG ECG Rhythm: Positive for: Normal QRS, Normal ST Segment, Sinus Rhythm (normal) Rate: 85 O2 Sat by Pulse Oximetry: 100 (RA) Pulse Ox Interpretation: Normal Medical Decision Making Medical Decision Making: Initial Impression: Esophagitis, esophageal stricture, Mitchell esophagus, pre- cancer. Differential includes but not limited to GERD. Initial Plan: --EKG --BMP --Troponin I --CBC w/ differential --PTT --PT --Chest two views (PA/LAT) [RAD] --Maalox Plus 30 ml PO --Pepcid 20 mg IVP --Lidocaine 2% Viscous 15 ml PO --Reevaluation 14:31 CXR FINDINGS: LUNGS: No active pulmonary disease. PLEURA: No significant pleural effusion identified. No pneumothorax apparent. CARDIOVASCULAR: Normal. OSSEOUS STRUCTURES: No significant abnormalities. VISUALIZED UPPER ABDOMEN: Normal. OTHER FINDINGS: None. IMPRESSION: No active disease. Scribe Attestation: Documented by Abebe Chen, acting as a scribe for Mundo Auguste MD Provider Scribe Attestation: All medical record entries made by the Scribe were at my direction and personally dictated by me. I have reviewed the chart and agree that the record accurately reflects my personal performance of the history, physical exam, medical decision making, and the department course for this patient. I have also personally directed, reviewed, and agree with the discharge instructions and disposition. Disposition - Clinical Impression Clinical Impression: Dysphagia, Chest pain - Patient ED Disposition Is Patient to be Admitted: No Doctor Will See Patient In The: Office Counseled Patient/Family Regarding: Studies Performed, Diagnosis, Need For Followup - Disposition Referrals: Hasmukh Austin MD [Staff Provider] - Disposition: Routine/Home Disposition Time: 15:47 Condition: GOOD Additional Instructions: Follow up with process safety specialist within 3-4 days. You will be called in 2-3 days for follow up and referral. Prescriptions: Esomeprazole Magnesium [Nexium] 20 mg PO DAILY #30 capsule. Sucralfate [Carafate] 1 gm PO DAILY #30 dose Instructions: Dysphagia, Chest Pain
[2017-07-11 13:36] LABS: PARTIAL THROMBOPLASTIN TIME 43.8 Seconds (25.6-37.1)
[2017-07-11] MEDS ORDERED: Alum-Mag Hydrox-Simethicone Susp (30 mL) ONE (14:00)
--- NOTE | 2017-07-11 14:32 | RAD ---
HISTORY: chest pain COMPARISON: Chest radiograph dated 06/23/2017. TECHNIQUE: Chest PA and lateral FINDINGS: LUNGS: No active pulmonary disease. PLEURA: No significant pleural effusion identified. No pneumothorax apparent. CARDIOVASCULAR: Normal. OSSEOUS STRUCTURES: No significant abnormalities. VISUALIZED UPPER ABDOMEN: Normal. OTHER FINDINGS: None. IMPRESSION: No active disease.
[2017-07-11 16:03] VITALS: BP 124/76; PULSE 70; RESP 18; TEMP 98.2; O2SAT 99
--- NOTE | 2017-07-13 19:16 | CARD ---
APPROVED REPORT EKG Measurement Heart [id number] <Conclusion> Normal sinus rhythm Normal ECG
== END 2017-07-11 16:02 | disposition home or self-care (01) ==
LOC: H.ER 12:18
DX: R07.89 Other chest pain (principal); R13.12 Dysphagia, oropharyngeal phase; Z79.01 Long term (current) use of anticoagulants; Z86.718 Personal history of other venous thrombosis and embolism; I10 Essential (primary) hypertension; Z86.711 Personal history of pulmonary embolism

== ENCOUNTER 2017-08-29 18:13 | Emergency (ER) | payer OTHER ==
[2017-08-29 18:13] VITALS: BMI 54.7
[2017-08-29 18:31] VITALS: BP 140/83; PULSE 96; RESP 16; O2SAT 100
[2017-08-29] MEDS ORDERED: Sodium Chloride 0.9% 1,000 ML IV STA (19:04)
[2017-08-29 19:17] LABS: BASO % 0.8 % (0.0-2.0); EOS # 0.5 K/uL (0.0-0.7); EOS % 7.7 % (0.0-4.0); HEMOGLOBIN 12.6 g/dL (12.0-16.0); LYMPH # 1.1 K/uL (1.0-4.3); LYMPH % 18.1 % (20.0-40.0); MEAN CELL VOLUME 70.4 fl (81.0-99.0); MEAN CORPUSCULAR HEMOGLOBIN 23.5 pg (27.0-31.0); MEAN CORPUSCULAR HGB CONC 33.4 g/dL (33.0-37.0); MEAN PLATELET VOLUME 8.9 fl (7.2-11.7); MONO # 0.9 K/uL (0.0-0.8); MONO % 15.4 % (0.0-10.0); NEUT # 3.5 K/uL (1.8-7.0); RBC 5.34 Mil/uL (3.80-5.20); RED CELL DISTRIBUTION WIDTH 17.1 % (11.5-14.5)
[2017-08-29 19:30] LABS: ALB/GLOB RATIO 1.1 (1.0-2.1); ALBUMIN 3.8 g/dL (3.5-5.0); ALT/SGPT 40 U/L (9-52); AST/SGOT 25 U/L (14-36); BLOOD UREA NITROGEN 15 mg/dl (7-17); CALCIUM 8.5 mg/dL (8.4-10.2); GFR AFRICAN-AMERICAN > 60; GFR NON-AFRICAN AMERICAN > 60
--- NOTE | 2017-08-29 19:33 | ED PDOC ---
HPI: Influenza Time Seen by Provider: 08/29/17 18:35 Chief Complaint: Flu-like Symptoms History Per: Patient Exam Limitations: no limitations Hx Influenza Vaccination: Yes Additional complaint(s):: Pt. states yesterday at 1200 she developed a sudden onset of bodyaches, sore throat, cough, congestion and fever. Reports that she's been taking AlkaSeltzer Cold/Flu without relief. Denies SOB, chest pain, palpitations, SIMMONS, hemoptysis, abd pain, N/V/D, recent travel. 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 Past Medical History Reviewed: Historical Data, Nursing Documentation, Vital Signs Vital Signs: Last Vital Signs Temp 100.4 F H 08/29/17 18:41 Pulse 96 H 08/29/17 18:31 Resp 16 08/29/17 18:31 BP 140/83 08/29/17 18:31 Pulse Ox 100 08/29/17 18:31 - Medical History PMH: Anemia, Anxiety, Asthma, Depression, Deep Vein Thrombosis (russ leg), HTN ( per old chart but pt denies), Migraine, Peripheral Edema (russ lung), Pneumonia, Pulmonary Embolism Denies: Chronic Kidney Disease - Surgical History Surgical History: Appendectomy, Endoscopy - Family History Family History: States: Diabetes, Hypertension - Immunization History Hx Tetanus Toxoid Vaccination: No Hx Influenza Vaccination: No Hx Pneumococcal Vaccination: No - Home Medications Home Medications: Ambulatory Orders Medication Instructions Recorded Warfarin [Coumadin] 8 mg PO DAILY 05/23/15 Fluconazole [Diflucan] 150 mg PO ONCE #1 tab 09/03/16 Hydrocortisone 1% Cream [Cortizone 1 appl TP BID #1 tube 09/03/16 1% Cream] Spironolactone [Aldactone] 100 mg PO BID 09/03/16 Amoxicillin/Potassium Clav 1 tab PO TID #30 tab 12/17/16 [Augmentin 500 mg-125 mg] Miconazole Nitrate [Monistat 3] 1 each VG DAILY #1 kit 12/17/16 Naproxen [Naprosyn] 500 mg PO Q12H #20 tab 12/17/16 Benzonatate [Tessalon Perle] 100 mg PO Q8 PRN #30 capsule 06/23/17 Oseltamivir Phosphate [Tamiflu] 75 mg PO BID #9 capsule 06/23/17 Esomeprazole Magnesium [Nexium] 20 mg PO DAILY #30 capsule. 07/11/17 Sucralfate [Carafate] 1 gm PO DAILY #30 dose 07/11/17 - Allergies Allergies/Adverse Reactions: Allergies Allergy/AdvReac Type Severity Reaction Status Date / Time avocado Allergy Severe RASH Verified 07/11/17 12:26 banana Allergy Severe ANAPHYLAXIS Verified 07/11/17 12:26 Iodinated Contrast- Oral and Allergy Severe RASH Verified 07/11/17 12:26 IV Dye [Iodinated Contrast Media - IV Dye] kiwi Allergy Severe RASH Verified 07/11/17 12:26 peanut Allergy Severe RASH Verified 07/11/17 12:26 shrimp Allergy Severe RASH Verified 07/11/17 12:26 wheat Allergy Severe RASH Verified 07/11/17 12:26 Iodine and Iodide Containing Allergy RASH Verified 07/11/17 12:26 Produc Review of Systems ROS Statement: Except As Marked, All Systems Reviewed And Found Negative Constitutional: Positive for: Fever, Malaise ENT: Positive for: Throat Pain Respiratory: Positive for: Cough Physical Exam - Reviewed Nursing Documentation Reviewed: Yes Vital Signs Reviewed: Yes - Physical Exam Appears: Positive for: Well, Non-toxic, No Acute Distress Head Exam: Positive for: ATRAUMATIC, NORMAL INSPECTION, NORMOCEPHALIC Skin: Positive for: Normal Color, Warm. Negative for: Rash Eye Exam: Positive for: EOMI, Normal appearance, PERRL ENT: Positive for: TM Is/Are (non-erythematous, non-bulging b/l), Pharyngeal Erythema. Negative for: Tonsillar Exudate, Tonsillar Swelling Neck: Positive for: Normal, Painless ROM Cardiovascular/Chest: Positive for: Regular Rate, Rhythm. Negative for: Tachycardia Respiratory: Positive for: Normal Breath Sounds. Negative for: Respiratory Distress Gastrointestinal/Abdominal: Positive for: Normal Exam, Soft. Negative for: Tenderness Back: Positive for: Normal Inspection Extremity: Positive for: Normal ROM Neurologic/Psych: Positive for: Alert, Oriented. Negative for: Aphasia, Facial Droop - Laboratory Results Result Diagrams: 08/29/17 19:00 08/29/17 19:00 - ECG O2 Sat by Pulse Oximetry: 100 - Radiology X-Ray: Interpreted by Me (CXR) X-Ray Interpretation: No Acute Disease - Progress ED Course And Treament: Labs, CXR, rapid flu tylenol 975mg PO, tamiflu PO ordered. Disposition - Clinical Impression Clinical Impression: Influenza-like symptoms - Patient ED Disposition Is Patient to be Admitted: Transfer of Care (Signed out to Prashanth HURD pending VBG and re-evaluation.) - Disposition Referrals: Darya Bonner MD [Primary Care Provider] - Disposition Time: 20:00 Condition: STABLE Forms: [employer] (Maori)
[2017-08-29 19:47] LABS: INR 2.4 (0.9-1.2); PARTIAL THROMBOPLASTIN TIME 42.6 Seconds (25.6-37.1); PROTHROMBIN TIME 26.6 Seconds (9.8-13.1)
[2017-08-29 19:56] LABS: SQUAMOUS EPITHIAL 2 /hpf (0-5); URINE BILIRUBIN NEGATIVE (NEGATIVE); URINE BLOOD MODERATE (NEGATIVE); URINE CLARITY SLIGHTY-CLOUDY (Clear); URINE COLOR YELLOW (YELLOW); URINE GLUCOSE (UA) NEG (Normal); URINE LEUKOCYTE ESTERASE NEG Leu/uL (Negative); URINE PROTEIN NEGATIVE (NEGATIVE); URINE UROBILINOGEN 0.2-1.0 mg/dL (0.2-1.0)
[2017-08-29 20:24] LABS: VENOUS BLOOD GAS BASE EXCESS -1.7 mmol/L (0.0-2.0); VENOUS BLOOD GAS PCO2 50 mmHg (40-60); VENOUS BLOOD GAS PO2 23 mm/Hg (30-55); VENOUS BLOOD PH 7.31 (7.32-7.43)
[2017-08-29 22:01] VITALS: TEMP 98.4
[2017-08-29] MEDS ORDERED: DiphenhydrAMINE 50 mg/ml Inj IVP STA (22:25)
--- NOTE | 2017-08-29 22:30 | ED PDOC ---
- Laboratory Results Result Diagrams: 08/29/17 19:00 08/29/17 19:00 - ECG O2 Sat by Pulse Oximetry: 100 Medical Decision Making Medical Decision Making: Case endorsed to me from JJ Cortez at 1999 pending re-evaluation and disposition. On re-evaluation, patient reports improvement of symptoms, denies any chest pain, dyspnea, or SOB. Patient only reports of a mild headache. On exam, patient remains AAOx3, in no acute distress, breathing easy and unlabored, speaking in full sentences. T 98.4 O2 sat 100%RA. On exam, neck is supple, no signs of meningismus, lungs clear to auscultation, cardiac RRR, abdomen soft, non-tender, repeat neuro exam shows no focal findings. Lab results reviewed and d/w the patient. Wbc and lactic acid is wnl. Strep (-), Flu (-), CXR : NAD, as read by JJ. Given reglan 10 mg IV and benadryl 25 mg IV for patient's headache. Diagnostic results d/w the patient in great detail. Diagnosis of viral illness, possible influenza d/w the patient. Logistics Manager instructed to follow-up with pmd in 1-2 days without fail. Advised to give medication as prescribed. Return to the emergency room at any time for any new or worsening symptoms. Logistics Manager states she fully agrees with and understands discharge instructions. States that she agrees with the plan and disposition. Verbalized and repeated discharge instructions and plan. I have given the health and safety coordinator opportunity to ask any additional questions. Disposition Counseled Patient/Family Regarding: Studies Performed, Diagnosis, Need For Followup, Rx Given - Clinical Impression Clinical Impression: Influenza-like symptoms - POA Present On Arrival: None - Disposition Referrals: Darya Bonner MD [Primary Care Provider] - Disposition: Routine/Home Disposition Time: 22:30 Condition: STABLE Additional Instructions: Thank you for letting us take care of you today. You were treated for influenza. The emergency medical care you received today was directed at your acute symptoms. If you were prescribed any medication, please fill it and take as directed. It may take several days for your symptoms to resolve. Return to the Emergency Department if your symptoms worsen, do not improve, or if you have any other problems. Please contact your doctor in 2 days for re-evaluation and follow up. Bring any paperwork you were given at discharge with you along with any medications you are taking to your follow up visit. Our treatment cannot replace ongoing medical care by a primary care provider (PCP) outside of the emergency department. Thank you for allowing the [facility] team to be part of your care today. 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
[2017-08-29] MEDS ORDERED: DiphenhydrAMINE 50 mg/ml Inj ONE (22:48)
--- NOTE | 2017-08-30 08:02 | RAD ---
HISTORY: cough COMPARISON: Chest radiographs 07/11/2017 TECHNIQUE: Chest PA and lateral FINDINGS: LUNGS: No active pulmonary disease. PLEURA: No significant pleural effusion identified. No pneumothorax apparent. CARDIOVASCULAR: Normal. OSSEOUS STRUCTURES: No significant abnormalities. VISUALIZED UPPER ABDOMEN: Normal. OTHER FINDINGS: None. IMPRESSION: No interval acute cardiopulmonary disease appreciated.
== END 2017-08-29 23:02 | disposition home or self-care (01) ==
LOC: H.ER 18:13 → SUPCPDRO 18:13 → H.ER 23:02
DX: J11.1 Influenza due to unidentified influenza virus with other respiratory manifestations (principal); Z79.01 Long term (current) use of anticoagulants; Z86.711 Personal history of pulmonary embolism; Z86.718 Personal history of other venous thrombosis and embolism; F41.9 Anxiety disorder, unspecified; I10 Essential (primary) hypertension
CPT/HCPCS: 71046; 80053; 81003; 81025; 82803; 85025; 85610; 85730; 87040; 87070; 87430; 87804; 99284; J7040

== ENCOUNTER 2017-12-19 22:15 | Emergency (ER) | payer OTHER ==
[2017-12-19 22:15] VITALS: BMI 54.7
[2017-12-19 22:32] VITALS: RESP 16; TEMP 98.3; O2SAT 100
--- NOTE | 2017-12-19 22:37 | ED PDOC ---
HPI: General Adult Time Seen by Provider: 12/19/17 22:36 Chief Complaint (Nursing): Headache Chief Complaint (Provider): headache, dizziness History Per: Patient Additional Complaint(s): 37-year-old female with history of migraines presents with headache and dizziness that started 4 days ago. Patient also has intermittent blurred vision. She states in the past with her migraine headaches when she vomits the pain usually subsides but this time around vomiting has not provided any headache pain relief. She's been taking Tylenol and Advil which has not helped. No fever, no chills, no neck pain or stiffness. Patient denies chest pain, shortness of breath or dyspnea on exertion. PMD: Dr. Colton Bonner Past Medical History Reviewed: Historical Data, Nursing Documentation, Vital Signs Vital Signs: Last Vital Signs Temp 98.3 F 12/19/17 22:27 Pulse 73 12/19/17 22:27 Resp 16 12/19/17 22:27 BP 127/86 12/19/17 22:27 Pulse Ox 100 12/20/17 00:56 - Medical History PMH: Anemia, Anxiety, Asthma, Depression, Deep Vein Thrombosis (russ leg), Migraine, Pulmonary Embolism - Surgical History Surgical History: Appendectomy, Endoscopy Other surgeries: cyst removed from left foot, IVC filter - Family History Family History: States: No Known Family Hx, Diabetes, Hypertension - Living Arrangements Living Arrangements: With Family - Social History Current smoker - smoking cessation education provided: No Alcohol: Social Drugs: Denies - Home Medications Home Medications: Ambulatory Orders Medication Instructions Recorded Warfarin [Coumadin] 8 mg PO DAILY 05/23/15 Fluconazole [Diflucan] 150 mg PO ONCE #1 tab 09/03/16 Hydrocortisone 1% Cream [Cortizone 1 appl TP BID #1 tube 09/03/16 1% Cream] Spironolactone [Aldactone] 100 mg PO BID 09/03/16 Amoxicillin/Potassium Clav 1 tab PO TID #30 tab 12/17/16 [Augmentin 500 mg-125 mg] Miconazole Nitrate [Monistat 3] 1 each VG DAILY #1 kit 12/17/16 Naproxen [Naprosyn] 500 mg PO Q12H #20 tab 12/17/16 Benzonatate [Tessalon Perle] 100 mg PO Q8 PRN #30 capsule 02/04/18 Oseltamivir Phosphate [Tamiflu] 75 mg PO BID #9 capsule 06/23/17 Esomeprazole Magnesium [Nexium] 20 mg PO DAILY #30 capsule. 07/11/17 Sucralfate [Carafate] 1 gm PO DAILY #30 dose 07/11/17 Oseltamivir Phosphate [Tamiflu] 75 mg PO BID #10 capsule 08/29/17 Metoclopramide [Reglan] 10 mg PO Q6 PRN #20 tab 12/20/17 Naproxen [Naprosyn] 500 mg PO BID #20 tab 12/20/17 - Allergies Allergies/Adverse Reactions: Allergies Allergy/AdvReac Type Severity Reaction Status Date / Time avocado Allergy Severe RASH Verified 07/11/17 12:26 banana Allergy Severe ANAPHYLAXIS Verified 07/11/17 12:26 Iodinated Contrast- Oral and Allergy Severe RASH Verified 07/11/17 12:26 IV Dye [Iodinated Contrast Media - IV Dye] kiwi Allergy Severe RASH Verified 07/11/17 12:26 peanut Allergy Severe RASH Verified 07/11/17 12:26 shrimp Allergy Severe RASH Verified 07/11/17 12:26 wheat Allergy Severe RASH Verified 07/11/17 12:26 Iodine and Iodide Containing Allergy RASH Verified 07/11/17 12:26 Produc Review of Systems ROS Statement: Except As Marked, All Systems Reviewed And Found Negative Constitutional: Negative for: Fever, Chills, Weakness Eyes: Positive for: Vision Change (blurry vision) Cardiovascular: Negative for: Chest Pain, Palpitations Respiratory: Negative for: Cough, Shortness of Breath, SOB with Exertion Gastrointestinal: Positive for: Nausea, Vomiting. Negative for: Abdominal Pain Musculoskeletal: Negative for: Neck Pain Neurological: Positive for: Headache, Dizziness. Negative for: Weakness, Numbness, Incoordination, Change in Speech, Confusion Physical Exam - Reviewed Nursing Documentation Reviewed: Yes Vital Signs Reviewed: Yes - Physical Exam Appears: Positive for: Well, Non-toxic, No Acute Distress Head Exam: Positive for: ATRAUMATIC, NORMAL INSPECTION Skin: Positive for: Normal Color. Negative for: Rash Eye Exam: Positive for: Normal appearance Cardiovascular/Chest: Positive for: Regular Rate, Rhythm Respiratory: Positive for: Normal Breath Sounds. Negative for: Wheezing, Respiratory Distress Gastrointestinal/Abdominal: Positive for: Soft. Negative for: Tenderness Extremity: Positive for: Normal ROM Neurologic/Psych: Positive for: Alert, chicken fancier II-XII (grossly intact), Oriented, Gait (steady). Negative for: Motor/Sensory Deficits, Aphasia, Facial Droop - Laboratory Results Result Diagrams: 12/20/17 00:06 12/20/17 00:06 Urine POC: Negative Urine dip results: Positive for: Blood (moderate). Negative for: Leukocyte Esterase, Nitrate, Ketones, Glucose, Bilirubin, Protein - ECG Interpretation Of ECG: Normal sinus rhythm 71 bpm, no acute changes, reviewed by PA and ED attending. O2 Sat by Pulse Oximetry: 100 Pulse Ox Interpretation: Normal - Other Rad CT head X-Ray: Read By Radiologist X-Ray Interpretation: no acute finding Medical Decision Making Medical Decision Makin37 year old female with headache and dizziness Plan: Urine test Urine dip CBC CMP EKG CT head PT/PTT IVF IV reglan 10 mg PO tylenol Patient feels better after meds given but still has headache that she rates as 5 out of 10. Patient given IV dexamethasone and valproic acid. Patient reports marked improvement to headache after meds given. Prescriptions for Reglan Naprosyn provided. Patient advised to drink plenty of fluids and follow-up with primary doctor in 2-3 days. Patient is aware she can return any time to emergency department if acutely worse. Disposition - Clinical Impression Clinical Impression: Migraine Counseled Patient/Family Regarding: Studies Performed, Diagnosis, Need For Followup, Rx Given - Disposition Referrals: Darya Bonner MD [Medical Doctor] - Disposition: Routine/Home Disposition Time: 02:15 Condition: IMPROVED Additional Instructions: Tick prescription meds as directed as needed for pain. Rest and drink plenty of fluids. Follow-up with primary doctor in 2-3 days or return any time if acutely worse. Prescriptions: Metoclopramide [Reglan] 10 mg PO Q6 PRN #20 tab PRN Reason: Nausea/Vomiting Naproxen [Naprosyn] 500 mg PO BID #20 tab Instructions: Migraine Headaches in Adults Forms: [employer] (Urdu) Results - Lab Results Lab Results: 12/20/17 12/20/17 12/20/17 00:06 00:06 00:06 WBC 9.7 D RBC 5.44 H Hgb 12.7 Hct 38.1 MCV 70.1 L MCH 23.3 L MCHC 33.3 RDW 17.9 H Plt Count 244 MPV 8.4 Neut % (Auto) 47.8 L Lymph % (Auto) 41.4 H [place] % (Auto) 6.9 Eos % (Auto) 3.4 Baso % (Auto) 0.5 Neut # (Auto) 4.7 Lymph # (Auto) 4.0 [place] # (Auto) 0.7 Eos # (Auto) 0.3 Baso # (Auto) 0.1 PT 16.4 H INR 1.5 APTT 35.7 Sodium 138 Potassium 4.0 Chloride 103 Carbon Dioxide 27 Anion Gap 12 BUN 15 Creatinine 0.7 Est GFR ( Amer) > 60 Est GFR (Non-Af Amer) > 60 POC Glucose (mg/dL) Random Glucose 92 Calcium 8.5 Total Bilirubin 0.3 AST 26 ALT 27 Alkaline Phosphatase 56 Total Protein 7.5 Albumin 4.0 Globulin 3.5 Albumin/Globulin Ratio 1.1 12/19/17 22:49 WBC RBC Hgb Hct MCV MCH MCHC RDW Plt Count MPV Neut % (Auto) Lymph % (Auto) [place] % (Auto) Eos % (Auto) Baso % (Auto) Neut # (Auto) Lymph # (Auto) [place] # (Auto) Eos # (Auto) Baso # (Auto) PT INR APTT Sodium Potassium Chloride Carbon Dioxide Anion Gap BUN Creatinine Est GFR ( Amer) Est GFR (Non-Af Amer) POC Glucose (mg/dL) 93 Random Glucose Calcium Total Bilirubin AST ALT Alkaline Phosphatase Total Protein Albumin Globulin Albumin/Globulin Ratio
[2017-12-19] MEDS ORDERED: Sodium Chloride 0.9% 1,000 ML IV STA (23:19)
[2017-12-20 00:15] LABS: BASO # 0.1 K/uL (0.0-0.2); BASO % 0.5 % (0.0-2.0); EOS # 0.3 K/uL (0.0-0.7); EOS % 3.4 % (0.0-4.0); HEMOGLOBIN 12.7 g/dL (12.0-16.0); INR 1.5; LYMPH % 41.4 % (20.0-40.0); MEAN CELL VOLUME 70.1 fl (81.0-99.0); MEAN CORPUSCULAR HEMOGLOBIN 23.3 pg (27.0-31.0); MEAN CORPUSCULAR HGB CONC 33.3 g/dL (33.0-37.0); MEAN PLATELET VOLUME 8.4 fl (7.2-11.7); MONO # 0.7 K/uL (0.0-0.8); MONO % 6.9 % (0.0-10.0); NEUT # 4.7 K/uL (1.8-7.0); NEUT % 47.8 % (50.0-75.0); NRBC % 0.2 % (0.0-0.0); PROTHROMBIN TIME 16.4 Seconds (9.8-13.1); RBC 5.44 Mil/uL (3.80-5.20); RED CELL DISTRIBUTION WIDTH 17.9 % (11.5-14.5); WHITE BLOOD COUNT 9.7 K/uL (4.8-10.8)
[2017-12-20 00:17] LABS: PARTIAL THROMBOPLASTIN TIME 35.7 Seconds (25.6-37.1)
[2017-12-20 00:20] LABS: ALB/GLOB RATIO 1.1 (1.0-2.1); ALT/SGPT 27 U/L (9-52); AST/SGOT 26 U/L (14-36); BLOOD UREA NITROGEN 15 mg/dl (7-17); CALCIUM 8.5 mg/dL (8.4-10.2); GFR AFRICAN-AMERICAN > 60; GFR NON-AFRICAN AMERICAN > 60
[2017-12-20] MEDS ORDERED: Dexamethasone 4 mg/1 ml IVP STA (00:54)
[2017-12-20] MEDS ORDERED: Valproate 500 MG in Sodium Chloride 0.9% 100 ML IVPB STA (01:02)
[2017-12-20] MEDS ORDERED: Dexamethasone 4 mg/1 ml ONE (01:27)
[2017-12-20 02:21] VITALS: BP 133/73; PULSE 65
--- NOTE | 2017-12-20 11:26 | CT ---
Date of service: 12/20/2017 PROCEDURE: CT HEAD WITHOUT CONTRAST. HISTORY: headache, blurry vision COMPARISON: None available. TECHNIQUE: Axial computed tomography images were obtained through the head/brain without intravenous contrast. Radiation dose: Total exam DLP = 825.53 mGy-cm. This CT exam was performed using one or more of the following dose reduction techniques: Automated exposure control, adjustment of the mA and/or kV according to patient size, and/or use of iterative reconstruction technique. FINDINGS: HEMORRHAGE: No intracranial hemorrhage. BRAIN: No mass effect or edema. No atrophy or chronic microvascular ischemic changes. VENTRICLES: Unremarkable. No hydrocephalus. CALVARIUM: Unremarkable. PARANASAL SINUSES: Unremarkable as visualized. No significant inflammatory changes. MASTOID AIR CELLS: Unremarkable as visualized. No inflammatory changes. OTHER FINDINGS: None. IMPRESSION: Normal CT of the Head. Follow-up CT or MRI are available if clinically warranted. Concordant preliminary report from [facility], 12/20/2017.
== END 2017-12-20 02:21 | disposition home or self-care (01) ==
LOC: H.ER 22:15
DX: G43.909 Migraine, unspecified, not intractable, without status migrainosus (principal); Z79.01 Long term (current) use of anticoagulants; Z86.711 Personal history of pulmonary embolism; Z86.718 Personal history of other venous thrombosis and embolism; F32.9 Major depressive disorder, single episode, unspecified; F41.9 Anxiety disorder, unspecified
CPT/HCPCS: 70450; 80053; 81025; 82948; 85025; 85610; 85730; 96361; 96365; 96375; 99284; J1100; J2765; J7030

== ENCOUNTER 2018-01-26 19:33 | Emergency (ER) | payer OTHER ==
[2018-01-26 19:33] VITALS: BMI 54.7
[2018-01-26 19:41] VITALS: RESP 18; O2SAT 100
[2018-01-26] MEDS ORDERED: Sodium Chloride 0.9% 1,000 ML IV STA (19:56)
--- NOTE | 2018-01-26 20:02 | ED PDOC ---
HPI: Female Pain Time Seen by Provider: 01/26/18 19:49 Chief Complaint (Nursing): Abdominal Pain Chief Complaint (Provider): Pelvic pain History Per: Patient History/Exam Limitations: no limitations Onset/Duration Of Symptoms: Days (today) Current Symptoms Are (Timing): Better Additional Complaint(s): Pt. with pelvic cramping/pain. Started today. No vaginal bleeding or dc. Pain across lower. No dysuria, weakness, headaches, chest pain, dyspnea. Is 7 weeks preg. Past Medical History Reviewed: Nursing Documentation, Vital Signs Vital Signs: Last Vital Signs Temp 98.9 F 01/26/18 19:37 Pulse 92 H 01/26/18 19:37 Resp 18 01/26/18 19:37 BP 110/59 L 01/26/18 19:37 Pulse Ox 100 01/26/18 19:37 - Medical History PMH: Anemia, Anxiety, Asthma, Depression, Deep Vein Thrombosis (russ leg), Peripheral Edema (russ lung), Pulmonary Embolism Denies: Chronic Kidney Disease - Surgical History Surgical History: Appendectomy, Endoscopy - Family History Family History: States: Unknown Family Hx, Diabetes, Hypertension - Immunization History Hx Tetanus Toxoid Vaccination: No Hx Influenza Vaccination: No Hx Pneumococcal Vaccination: No - Home Medications Home Medications: Ambulatory Orders Medication Instructions Recorded Warfarin [Coumadin] 8 mg PO DAILY 05/23/15 Fluconazole [Diflucan] 150 mg PO ONCE #1 tab 09/03/16 Hydrocortisone 1% Cream [Cortizone 1 appl TP BID #1 tube 09/03/16 1% Cream] Spironolactone [Aldactone] 100 mg PO BID 09/03/16 Amoxicillin/Potassium Clav 1 tab PO TID #30 tab 12/17/16 [Augmentin 500 mg-125 mg] Miconazole Nitrate [Monistat 3] 1 each VG DAILY #1 kit 12/17/16 Naproxen [Naprosyn] 500 mg PO Q12H #20 tab 12/17/16 Benzonatate [Tessalon Perle] 100 mg PO Q8 PRN #30 capsule 06/23/17 Oseltamivir Phosphate [Tamiflu] 75 mg PO BID #9 capsule 06/23/17 Esomeprazole Magnesium [Nexium] 20 mg PO DAILY #30 07/11/17 Sucralfate [Carafate] 1 gm PO DAILY #30 dose 07/11/17 Oseltamivir Phosphate [Tamiflu] 75 mg PO BID #10 capsule 08/29/17 Metoclopramide [Reglan] 10 mg PO Q6 PRN #20 tab 12/20/17 Naproxen [Naprosyn] 500 mg PO BID #20 tab 12/20/17 - Allergies Allergies/Adverse Reactions: Allergies Allergy/AdvReac Type Severity Reaction Status Date / Time avocado Allergy Severe RASH Verified 07/11/17 12:26 banana Allergy Severe ANAPHYLAXIS Verified 07/11/17 12:26 Iodinated Contrast- Oral and Allergy Severe RASH Verified 07/11/17 12:26 IV Dye [Iodinated Contrast Media - IV Dye] kiwi Allergy Severe RASH Verified 07/11/17 12:26 peanut Allergy Severe RASH Verified 07/11/17 12:26 shrimp Allergy Severe RASH Verified 07/11/17 12:26 wheat Allergy Severe RASH Verified 07/11/17 12:26 Iodine and Iodide Containing Allergy RASH Verified 07/11/17 12:26 Produc Review of Systems ROS Statement: Except As Marked, All Systems Reviewed And Found Negative Genitourinary Female: Positive for: Pelvic Pain Musculoskeletal: Positive for: Back Pain Physical Exam - Reviewed Nursing Documentation Reviewed: Yes Vital Signs Reviewed: Yes - Physical Exam Appears: Positive for: Non-toxic, No Acute Distress Head Exam: Positive for: ATRAUMATIC, NORMAL INSPECTION, NORMOCEPHALIC Skin: Positive for: Normal Color, Warm, DRY Eye Exam: Positive for: EOMI, Normal appearance, PERRL ENT: Positive for: Normal ENT Inspection Neck: Positive for: Normal, Painless ROM, Supple Cardiovascular/Chest: Positive for: Regular Rate, Rhythm Respiratory: Positive for: CNT, Normal Breath Sounds Gastrointestinal/Abdominal: Positive for: Normal Exam, Bowel Sounds, Soft. Negative for: Tenderness Back: Positive for: Normal Inspection. Negative for: L CVA Tenderness, R CVA Tenderness Extremity: Positive for: Normal ROM. Negative for: Tenderness, Pedal Edema Neurologic/Psych: Positive for: Alert, Oriented. Negative for: Motor/Sensory Deficits - Laboratory Results Result Diagrams: 01/26/18 20:15 01/26/18 20:15 Interpretation Of Abn Labs: no acute - ECG O2 Sat by Pulse Oximetry: 100 Pulse Ox Interpretation: Normal - CT Scan/US US Other Rad Studies (CT/US): Radiology Report Reviewed Other Rad Interpretation: US SIUP - Progress ED Course And Treament: 1036: Pt. stable. AAOx3. Pain free. Tolerated po. Disposition - Clinical Impression Clinical Impression: Threatened - Patient ED Disposition Is Patient to be Admitted: No Counseled Patient/Family Regarding: Studies Performed, Diagnosis, Need For Followup - Disposition [facility] - [facility]28[facility]18 Disposition: Routine/Home Disposition Time: 22:37 Condition: STABLE Additional Instructions: Return if not better in 3 days. Instructions: Threatened Miscarriage Forms: [employer] (Polish)
[2018-01-26 20:40] LABS: BASO % 0.5 % (0.0-2.0); EOS # 0.2 K/uL (0.0-0.7); EOS % 2.6 % (0.0-4.0); LYMPH # 1.8 K/uL (1.0-4.3); LYMPH % 22.7 % (20.0-40.0); MEAN CELL VOLUME 70.7 fl (81.0-99.0); MEAN CORPUSCULAR HEMOGLOBIN 24.1 pg (27.0-31.0); MEAN CORPUSCULAR HGB CONC 34.1 g/dL (33.0-37.0); MEAN PLATELET VOLUME 8.8 fl (7.2-11.7); MONO # 0.5 K/uL (0.0-0.8); MONO % 5.8 % (0.0-10.0); NEUT # 5.5 K/uL (1.8-7.0); NEUT % 68.4 % (50.0-75.0); NRBC % 0.1 % (0.0-0.0); RBC 5.39 Mil/uL (3.80-5.20); RED CELL DISTRIBUTION WIDTH 18.3 % (11.5-14.5); WHITE BLOOD COUNT 8.1 K/uL (4.8-10.8)
[2018-01-26 20:49] LABS: BLOOD UREA NITROGEN 9 mg/dl (7-17); GFR NON-AFRICAN AMERICAN > 60
[2018-01-26 22:56] VITALS: BP 120/60; PULSE 91; TEMP 99.2
--- NOTE | 2018-01-27 12:24 | US ---
Date of service: 01/26/18 Indication: and pain Comparison: Pelvic ultrasound performed 03/28/17 Technique: Real-time transabdominal pelvic ultrasound was performed. In addition a transvaginal pelvic ultrasound was necessary to better depict pelvic anatomy. Findings: The uterus measures approximately 12.2 x 5.8 x 7.0 cm. Anteverted. There is a single intrauterine fetus present. The gestational sac measures 2.2 cm and is compatible with a gestational age of 6 weeks 6 days. The crown-rump length measures 1.0 cm and is compatible with a gestational age of 7 weeks 1 day. 6 mm yolk sac. There is heart motion which measured 145.3 BPM. The right ovary measures 3.0 x 2.2 x 2.0 cm. The left ovary measures 4.2 x 3.8 x 3.4 cm and contains 2 probable cysts measuring approximately 2.0 x 2.1 cm and 2.2 x 1.5 cm. Blood flow was demonstrated to both ovaries. Trace fluid in the cervix. Impression: Live single intrauterine with estimated gestational age 6 weeks 6 days by gestational sac calculation and 7 weeks 1 day by crown-rump length calculation. heart rate 145.3 bpm. Advise an anomaly screen at 16-18 weeks gestational age Preliminary impression was provided by virtual radiologic.
== END 2018-01-26 23:03 | disposition home or self-care (01) ==
LOC: H.ER 19:33
DX: O20.0 Threatened abortion (principal); Z3A.01 Less than 8 weeks gestation of pregnancy; Z79.01 Long term (current) use of anticoagulants; Z86.711 Personal history of pulmonary embolism; Z86.718 Personal history of other venous thrombosis and embolism
CPT/HCPCS: 76817; 80048; 81025; 84702; 85025; 86850; 86900; 96360; 99283; J7030

== ENCOUNTER 2018-02-11 11:00 | Emergency (ER) | payer OTHER ==
[2018-02-11 15:36] LABS: BASO # 0.1 K/uL (0.0-0.2); BASO % 0.7 % (0.0-2.0); EOS # 0.3 K/uL (0.0-0.7); EOS % 3.3 % (0.0-4.0); HEMOGLOBIN 12.3 g/dL (12.0-16.0); LYMPH # 2.8 K/uL (1.0-4.3); LYMPH % 36.3 % (20.0-40.0); MEAN CELL VOLUME 71.8 fl (81.0-99.0); MEAN CORPUSCULAR HEMOGLOBIN 24.4 pg (27.0-31.0); MEAN PLATELET VOLUME 9.2 fl (7.2-11.7); MONO # 0.4 K/uL (0.0-0.8); MONO % 5.9 % (0.0-10.0); NEUT # 4.1 K/uL (1.8-7.0); NEUT % 53.8 % (50.0-75.0); NRBC % 0.2 % (0.0-0.0); RBC 5.06 Mil/uL (3.80-5.20); RED CELL DISTRIBUTION WIDTH 17.8 % (11.5-14.5); WHITE BLOOD COUNT 7.6 K/uL (4.8-10.8)
[2018-02-11 16:24] LABS: URINE BILIRUBIN NEGATIVE (NEGATIVE); URINE BLOOD LARGE (NEGATIVE); URINE CLARITY CLOUDY (Clear); URINE COLOR AMBER (YELLOW); URINE GLUCOSE (UA) NEG (Normal); URINE LEUKOCYTE ESTERASE NEG Leu/uL (Negative); URINE PROTEIN 100 mg/dL (NEGATIVE); URINE UROBILINOGEN 0.2-1.0 mg/dL (0.2-1.0)
[2018-02-11 16:39] LABS: SQUAMOUS EPITHIAL 12 /hpf (0-5); URINE BACTERIA RARE (<OCC)
--- NOTE | 2018-02-12 09:40 | US ---
Date of service: 02/11/2018 PROCEDURE: OB Pelvic Ultrasound HISTORY: Bleeding LMP: 11/03/2017 COMPARISON: Pelvic ultrasound dated 01/26/2018. FINDINGS: UTERUS: Gestational sac: Single intrauterine gestation. Measures 3.2 cm compatible with estimated gestational age of 8 weeks, 1 day. Yolk sac: Measures 0.4 cm pole: [place]-rump length measures 2.9 cm compatible with estimated gestational age of 9 weeks, 5 days Heart rate: 169 bpm. age (Ultrasound estimated): 9 weeks, 0 days Erica-gestational hemorrhage: None. Date of delivery (Ultrasound estimated) : 09/16/2018 Uterus measures 12.9 x 7.3 x 7.0 cm. Anteverted. Normal in size and appearance. CERVIX: Measures 3.5 cm. Trace endocervical fluid again seen. No cervical abnormality seen. RIGHT OVARY: Not visualized LEFT OVARY: Measures 6.5 x 5.2 x 3.7 cm. Cysts measuring 2.9 x 2.4 x 2.0 cm and 2.8 x 2.1 x 1.7 cm.. Normal flow. FREE FLUID: None. OTHER FINDINGS: None. IMPRESSION: Single live intrauterine gestation with average ultrasound age of 9 weeks, 0 days. heart rate 169 beats per minute. Trace endocervical fluid again seen.
== END 2018-02-11 13:35 | disposition home or self-care (01) ==
LOC: H.ER 11:00
DX: O20.0 Threatened abortion (principal); Z3A.09 9 weeks gestation of pregnancy